=== PATIENT | male | born 1945 | race Caucasian/White ===

== ENCOUNTER 2018-12-08 06:12 | Day surgery (SDC) ==
[2018-12-08] MEDS: CYCLOGYL 2% OPTH OP PRN ×3 (06:50→07:00)
[2018-12-08] MEDS: BETADINE OPTH PREP OP PRN ×2 (06:50→07:15)
[2018-12-08 07:01] VITALS: TEMP 99
[2018-12-08] MEDS ORDERED: BSS WITH EPINEPHRINE OP ONE (07:01)
[2018-12-08] MEDS ORDERED: TETRACAINE 0.5% UNIT-DOSE OP PRN (07:01)
[2018-12-08] MEDS ORDERED: LIDOCAINE 1%/PHENYLEPHRINE 1.5% BSS (SURGERY) INTRAOCULA ONE (07:01)
[2018-12-08] MEDS ORDERED: ZOFRAN 4 MG/2 ML IVP ONE (07:01)
[2018-12-08] MEDS ORDERED: DEX-MOXI-KETOR OPTH INJ 1/0.5/0.4 MG/ML IO ONE (07:01)
[2018-12-08] MEDS ORDERED: VERSED ONE (07:30)
[2018-12-08] MEDS ORDERED: SUBLIMAZE ONE (07:30)
[2018-12-14 12:39] VITALS: BP 135/56
== END 2018-12-08 08:30 | disposition home or self-care (01) ==
LOC: SURG 06:12
PROVIDERS: ATTEND Ophthalmology
DX: H25.812 Combined forms of age-related cataract, left eye (principal)

== ENCOUNTER 2018-12-22 08:07 | Day surgery (SDC) ==
[2018-12-22] MEDS: TETRACAINE 0.5% UNIT-DOSE OP PRN ×2 (08:20→09:08)
[2018-12-22] MEDS: BETADINE OPTH PREP OP PRN ×2 (08:21→09:09)
[2018-12-22] MEDS: CYCLOGYL 2% OPTH OP PRN ×3 (08:22→08:32)
[2018-12-22] MEDS ORDERED: DEX-MOXI-KETOR OPTH INJ 1/0.5/0.4 MG/ML IO ONE (08:44)
[2018-12-22] MEDS ORDERED: ZOFRAN 4 MG/2 ML IVP ONE (08:44)
[2018-12-22] MEDS ORDERED: LIDOCAINE 1%/PHENYLEPHRINE 1.5% BSS (SURGERY) INTRAOCULA ONE (08:44)
[2018-12-22] MEDS ORDERED: BSS WITH EPINEPHRINE OP ONE (08:44)
[2018-12-22] MEDS ORDERED: SUBLIMAZE ONE (09:16)
[2018-12-22] MEDS ORDERED: ZOFRAN 4 MG/2 ML ONE (09:16)
[2018-12-22] MEDS ORDERED: VERSED ONE (09:16)
[2018-12-22 12:27] VITALS: BP 154/64
== END 2018-12-22 10:05 | disposition home or self-care (01) ==
LOC: SURG 08:07 → EDSEX 08:45 → SURG 10:05
PROVIDERS: ATTEND Ophthalmology
DX: H25.811 Combined forms of age-related cataract, right eye (principal)